=== PATIENT | female | born 1995 | race Hispanic/Latino ===

== ENCOUNTER 2020-12-18 06:50 | Emergency (ER) | payer BC ==
[~2020-12-18] VITALS: Ht 154.9 cm; Wt 56.7 kg
[2020-12-18 07:05] VITALS: BP 100/56
[2020-12-18] MEDS ORDERED: ACETAMINOPHEN 500 MG TABLET PO ONE (07:30)
[2020-12-18] MEDS ORDERED: ACET-66 PO (08:28)
[2020-12-18 08:47] LABS: APPEARANCE,URINE Clear (CLEAR); BILIRUBIN,URINE Negative (NEGATIVE); COLOR,URINE Yellow (YELLOW); GLUCOSE, URINE (UA) Negative (NEGATIVE); KETONES,URINE Negative (NEGATIVE); LEUKOCYTE ESTERASE ,URINE Small (NEGATIVE); NITRATE,URINE Negative (NEGATIVE); OCCULT BLOOD,URINE Negative (NEGATIVE); PROTEIN,URINE Negative (NEGATIVE); UROBILINOGEN,URINE 0.2 mg/dL (0.2-1.0)
[2020-12-18 09:09] LABS: BACTERIA,URINE Rare /HPF (None Seen); RBC,URINE None Seen /HPF (0-1); WBC,URINE 0-1 /HPF (0-1)
== END 2020-12-18 08:47 | disposition home or self-care (01) ==
LOC: EDH 06:50
DX: O26.91 Pregnancy related conditions, unspecified, first trimester (principal); R10.31 Right lower quadrant pain; Z3A.11 11 weeks gestation of pregnancy
CPT/HCPCS: 81001

== ENCOUNTER 2022-02-28 15:58 | Inpatient (IN) | payer BC ==
[~2022-02-28] VITALS: Ht 154.9 cm; Wt 61.4 kg
[~2022-02-28 15:58] MED LIST: ACET-66 PO; PREN-154 PO
[2022-02-28] MEDS ORDERED: ZOSYN 3.375GM+NS 50ML 50 ML IV STA (19:57)
[2022-02-28] MEDS ORDERED: ACETAMINOPHEN 500 MG TABLET PO ONE (20:00)
[2022-02-28] MEDS ORDERED: KETOROLAC 30MG VIAL (30MG/ML) IVP ONE (20:00)
[2022-02-28] MEDS ORDERED: ONDANSETRON 4MG INJ IVP ONE (20:00)
[2022-02-28] MEDS ORDERED: MORPHINE 2 MG SYG IVP ONE (20:00)
[2022-02-28] MEDS ORDERED: 0.9%NACL 1000ML 1,000 ML IV ONE (20:00)
[2022-02-28 20:43] LABS: APPEARANCE,URINE CLEAR (CLEAR); BILIRUBIN,URINE NEGATIVE (NEGATIVE); COLOR,URINE LIGHT-YELLOW (YELLOW); GLUCOSE, URINE (UA) NEGATIVE (NEGATIVE); KETONES,URINE NEGATIVE (NEGATIVE); LEUKOCYTE ESTERASE ,URINE 75 Leu/uL (NEGATIVE); NITRATE,URINE NEGATIVE (NEGATIVE); OCCULT BLOOD,URINE NEGATIVE (NEGATIVE); PROTEIN,URINE NEGATIVE (NEGATIVE); UROBILINOGEN,URINE 0.2 mg/dL (0.2-1.0)
[2022-02-28 20:48] LABS: BACTERIA,URINE RARE /HPF (None Seen); HCG,QUALITATIVE URINE NEGATIVE (NEGATIVE); MUCUS,URINE RARE LPF (None Seen); SQUAMOUS EPITHELIAL CELL,UR MOD /HPF (0-2)
[2022-02-28 21:18] LABS: BASOPHILS % (AUTO) 0.4 % (0.0-5.0); EOSINOPHILS % (AUTO) 2.1 % (0.0-8.0); HEMATOCRIT 42.2 % (36-48); LYMPHOCYTES % (AUTO) 20.6 % (21.0-51.0); MEAN CORPUSCULAR HEMOGLOBIN 30.7 pg (27.0-33.0); MEAN CORPUSCULAR HGB CONC 33.4 g/dL (32.0-36.0); MEAN CORPUSCULAR VOLUME 91.9 fL (79-99); MONOCYTES % (AUTO) 6.2 % (3.0-13.0); NEUTROPHILS % (AUTO) 70.5 % (40.0-77.0); PLATELET COUNT (AUTO) 352 K/uL (130-400); RED BLOOD CELL COUNT(AUTO) 4.59 MIL/uL (4.00-5.50); RED CELL DISTRIBUTION WIDTH 11.9 % (11.0-15.5); WHITE BLOOD COUNT (AUTO) 9.4 K/uL (4.8-10.8)
[2022-02-28 21:29] LABS: CREATININE 0.6 mg/dL (0.5-1.5); POTASSIUM 3.9 mmol/L (3.5-5.1)
[2022-02-28 21:34] LABS: TOTAL PROTEIN, SERUM 7.9 g/dL (6.0-8.3)
[2022-02-28] MEDS ORDERED: VANCOMYCIN 1G VIAL IVPB ONE (23:30)
[2022-02-28] MEDS ORDERED: VANCOMYCIN PROTOCOL PER PHARMACY IV SCH ×2 (23:30→23:45)
[2022-02-28] MEDS: ZOSYN 3.375GM +NS 50ML IV SCH (23:30)
[2022-02-28] MEDS ORDERED: VANCOMYCIN 1G/250ML KIT 250 ML IV ONE (23:45)
[2022-03-01 04:25] LABS: BASOPHILS % (AUTO) 0.5 % (0.0-5.0); EOSINOPHILS % (AUTO) 2.1 % (0.0-8.0); HEMATOCRIT 37.5 % (36-48); LYMPHOCYTES % (AUTO) 21.8 % (21.0-51.0); MEAN CORPUSCULAR HEMOGLOBIN 31.1 pg (27.0-33.0); MEAN CORPUSCULAR HGB CONC 32.8 g/dL (32.0-36.0); MEAN CORPUSCULAR VOLUME 94.9 fL (79-99); NEUTROPHILS % (AUTO) 69.3 % (40.0-77.0); PLATELET COUNT (AUTO) 281 K/uL (130-400); RED BLOOD CELL COUNT(AUTO) 3.95 MIL/uL (4.00-5.50); RED CELL DISTRIBUTION WIDTH 11.9 % (11.0-15.5); WHITE BLOOD COUNT (AUTO) 9.2 K/uL (4.8-10.8)
[2022-03-01 04:51] LABS: ALBUMIN 3.2 g/dL (3.5-5.0); CREATININE 0.7 mg/dL (0.5-1.5); POTASSIUM 3.8 mmol/L (3.5-5.1); TOTAL PROTEIN, SERUM 6.5 g/dL (6.0-8.3)
[2022-03-01 07:34] VITALS: BP 110/60
[2022-03-01] MEDS: ZOSYN 3.375GM +NS 50ML IV SCH ×3 (09:41→23:23)
[2022-03-01 11:19] VITALS: BP 96/57
[2022-03-01] MEDS ORDERED: VANCOMYCIN 1G/250ML KIT 250 ML IV ONE (13:00)
[2022-03-01] MEDS: HYDROMORPHONE 0.5 MG SYG (0.5MG/0.5ML) IVP PRN ×3 (13:39→23:23)
[2022-03-01] MEDS ORDERED: 0.9% NACL 250ML 250 ML ONE (13:49)
[2022-03-01 16:31] VITALS: BP 106/67
[2022-03-01 20:00] VITALS: BP 102/64
[2022-03-01] MEDS: ONDANSETRON 4MG INJ IVP PRN (20:13)
[2022-03-01] MEDS: VANCOMYCIN 750MG VIAL IVPB SCH (23:49)
[2022-03-02] VITALS: BP 95/55
[2022-03-02] MEDS: HYDROMORPHONE 0.5 MG SYG (0.5MG/0.5ML) IVP PRN ×2 (03:48→09:17)
[2022-03-02 04:00] VITALS: BP 102/61
[2022-03-02 08:00] VITALS: BP 98/62
[2022-03-02] MEDS: ZOSYN 3.375GM +NS 50ML IV SCH ×3 (08:02→23:46)
[2022-03-02] MEDS: ONDANSETRON 4MG INJ IVP PRN (09:16)
[2022-03-02] MEDS ORDERED: BENZOCAINE/LANOLIN/ALOE VERA 60 ML AEROSOL TP SCH (09:38)
[2022-03-02 12:00] VITALS: BP 104/66
[2022-03-02] MEDS ORDERED: 0.9% NACL 250ML 250 ML ONE (12:25)
[2022-03-02] MEDS: VANCOMYCIN 750MG VIAL IVPB SCH ×2 (12:26→23:46)
[2022-03-02 16:00] VITALS: BP 119/56
[2022-03-02 20:00] VITALS: BP 99/59
[2022-03-03] VITALS: BP 97/53
[2022-03-03 04:00] VITALS: BP 103/58
[2022-03-03 08:07] VITALS: BP 97/62
[2022-03-03] MEDS: ZOSYN 3.375GM +NS 50ML IV SCH ×2 (08:59→15:01)
[2022-03-03] MEDS: BENZOCAINE/LANOLIN/ALOE VERA 60 ML AEROSOL TP SCH (09:00)
[2022-03-03] MEDS ORDERED: 0.9% NACL 250ML 250 ML ONE (11:55)
[2022-03-03 12:00] VITALS: BP 96/53
[2022-03-03] MEDS: VANCOMYCIN 750MG VIAL IVPB SCH (12:05)
[2022-03-03] MEDS: GABAPENTIN 100 MG CAPSULE PO SCH ×2 (14:12→19:59)
[2022-03-03] MEDS: HYDROMORPHONE 0.5 MG SYG (0.5MG/0.5ML) IVP PRN (14:12)
[2022-03-03 16:49] VITALS: BP 110/55
[2022-03-03] MEDS: ACETAMINOPHEN WITH CODEINE 1 TAB TAB PO PRN (21:06)
[2022-03-04] VITALS: BP 101/60
[2022-03-04] MEDS: VANCOMYCIN 750MG VIAL IVPB SCH ×2 (00:24→11:52)
[2022-03-04] MEDS: ZOSYN 3.375GM +NS 50ML IV SCH ×3 (03:20→16:17)
[2022-03-04 04:00] VITALS: BP 96/56
[2022-03-04 08:42] VITALS: BP 101/56
[2022-03-04] MEDS: GABAPENTIN 100 MG CAPSULE PO SCH ×3 (08:45→20:57)
[2022-03-04] MEDS: BENZOCAINE/LANOLIN/ALOE VERA 60 ML AEROSOL TP SCH (08:48)
[2022-03-04 11:38] VITALS: BP 103/57
[2022-03-04 16:46] VITALS: BP 104/69
[2022-03-04 20:00] VITALS: BP 101/69
[2022-03-04] MEDS: ACETAMINOPHEN WITH CODEINE 1 TAB TAB PO PRN (20:57)
[2022-03-05] VITALS: BP 97/60
[2022-03-05] MEDS: VANCOMYCIN 750MG VIAL IVPB SCH ×2 (00:05→12:05)
[2022-03-05] MEDS: ZOSYN 3.375GM +NS 50ML IV SCH ×3 (03:09→17:15)
[2022-03-05 04:00] VITALS: BP 99/47
[2022-03-05 07:15] VITALS: BP 104/54
[2022-03-05] MEDS ORDERED: 0.9%NACL 50ML 50 ML IV ONE (08:24)
[2022-03-05] MEDS: GABAPENTIN 100 MG CAPSULE PO SCH ×2 (08:30→15:41)
[2022-03-05] MEDS: BENZOCAINE/LANOLIN/ALOE VERA 60 ML AEROSOL TP SCH (08:31)
[2022-03-05 11:15] VITALS: BP 102/59
[2022-03-05] MEDS ORDERED: 0.9% NACL 250ML 250 ML ONE (11:58)
[2022-03-05] MEDS: ACETAMINOPHEN WITH CODEINE 1 TAB TAB PO PRN (12:01)
[2022-03-05 15:00] VITALS: BP 111/65
== END 2022-03-05 20:15 | disposition home or self-care (01) | DRG 603 ==
LOC: EDH 15:58 → EDHIP 23:30 → OBSVTOIN 23:30 → 4AH 03-01 04:00
PROVIDERS: ADMIT Internal Medicine; ATTEND Internal Medicine
DX: L03.116 Cellulitis of left lower limb (principal); L02.416 Cutaneous abscess of left lower limb; L72.3 Sebaceous cyst
CPT/HCPCS: 36415; 73590; 76882; 80053; 80202; 81001; 81025; 83605; 85025; 87040; 87070; 87076; 87088; 93971; 96365; 96375; G0378; J1170; J1885; J2405; J2543; J3370; J7030; J7050